=== PATIENT | male | born 1995 | race Hispanic/Latino ===

== ENCOUNTER 2023-07-07 21:11 | Observation (INO) | payer SELFPAY ==
[2023-07-07 21:46] LABS: #Monocytes 0.6 thou/uL (0.11-0.59); %Basophils 0.2 % (0.0-1.0); %Lymphocytes 2.8 % (21.0-51.0); %Monocytes 2.5 % (0.0-10.0); %Neutrophils 94.1 % (42.0-75.0); Hematocrit 54.8 % (42.0-52.0); Hemoglobin 18.5 g/dL (14.0-18.0); Mean Corpuscular HGB CONC 33.8 g/dL (32.0-36.0); Mean Corpuscular Hemoglobin 30.7 pg (27.0-31.0); Mean Corpuscular Volume 90.9 fl (78.0-98.0); Mean Platelet Volume 9.5 fL (7.4-10.4); Platelet Count 423 10x3/uL (130-400); RBC Distribution Width 12.8 % (11.5-14.5); Red Blood Cell (RBC) Count 6.03 mill/uL (4.70-6.10); White Blood Cell (WBC) Count 22.3 10x3/uL (4.8-10.8)
[2023-07-07 22:27] LABS: ALT (SGPT) 20 U/L (8-55); AST (SGOT) 20 U/L (5-34); Alkaline Phosphatase 94 U/L (40-110); Anion Gap 29 mmol/L (10-20); BUN (Urea Nitrogen) 28 mg/dL (8.9-20.6); Bilirubin, Total 0.5 mg/dL (0.2-1.2); Calc. Creatinine Clearance 0 mL/min (70-130); Calcium 12.2 mg/dL (7.8-10.44); Carbon Dioxide 18 mmol/L (22-29); Chloride 98 mmol/L (98-107); Estimated GFR 19; Glucose 161 mg/dL (70-105); Lipase 18 U/L (8-78); Potassium 5.3 mmol/L (3.5-5.1); Protein, Total 10.7 g/dL (6.0-8.3); Sodium 140 mmol/L (136-145)
[2023-07-07] MEDS ORDERED: Piperacillin/Tazobactam 4.5 GM VIAL ONE (23:03)
[2023-07-07 23:40] LABS: Albumin Greater than 6.2 g/dL (3.5-5.0)
[2023-07-08] MEDS ORDERED: Sodium Chloride 0.9% 1,000 ML IV SCH (00:30)
[2023-07-08] MEDS ORDERED: Ondansetron ODT 4 MG TAB PO PRN (01:08)
[2023-07-08] MEDS ORDERED: Acetaminophen 325 MG TAB PO PRN (01:08)
[2023-07-08] MEDS ORDERED: Ondansetron PF 4 MG/2 ML Vial IVP PRN (01:08)
[2023-07-08 01:12] LABS: Anion Gap 24 mmol/L (10-20); BUN (Urea Nitrogen) 29 mg/dL (8.9-20.6); Calc. Creatinine Clearance 0 mL/min (70-130); Calcium 9.4 mg/dL (7.8-10.44); Carbon Dioxide 16 mmol/L (22-29); Chloride 104 mmol/L (98-107); Estimated GFR 25; Glucose 125 mg/dL (70-105); Sodium 139 mmol/L (136-145)
[2023-07-08 01:14] LABS: Lactic Acid 7.2 mmol/L (0.5-2.2)
[2023-07-08] MEDS: Sodium Chloride 0.9% 1,000 ML IV SCH ×3 (01:15→12:28)
[2023-07-08] MEDS ORDERED: Sodium Chloride 0.9% 500 ML IV SCH ×2 (01:45→03:30)
[2023-07-08] MEDS ORDERED: Sodium Bicarb 50 MEQ/50 ML VIAL IVP SCH ×2 (02:30→02:45)
[2023-07-08 02:56] VITALS: BMI 22.7
[2023-07-08] MEDS ORDERED: Piperacillin/Tazobactam 3.375 GM in Sodium Chloride 0.9% 100 ML IVPB SCH (04:00)
[2023-07-08] MEDS ORDERED: Piperacillin/Tazobactam 4.5 GM in Sodium Chloride 0.9% 100 ML IVPB SCH (04:00)
[2023-07-08 05:41] LABS: #Monocytes 1.4 thou/uL (0.11-0.59); #Neutrophils 12.5 thou/uL (1.40-6.50); %Basophils 0.2 % (0.0-1.0); %Monocytes 9.3 % (0.0-10.0); Mean Corpuscular HGB CONC 34.4 g/dL (32.0-36.0); Mean Corpuscular Hemoglobin 31.2 pg (27.0-31.0); Mean Corpuscular Volume 90.8 fl (78.0-98.0); Mean Platelet Volume 9.4 fL (7.4-10.4); Red Blood Cell (RBC) Count 4.26 mill/uL (4.70-6.10); White Blood Cell (WBC) Count 15.5 10x3/uL (4.8-10.8)
[2023-07-08 05:52] LABS: Hematocrit 38.7 % (42.0-52.0); Hemoglobin 13.3 g/dL (14.0-18.0); Platelet Count 313 10x3/uL (130-400)
[2023-07-08 06:07] LABS: Lactic Acid 2.2 mmol/L (0.5-2.2)
[2023-07-08 06:23] LABS: ALT (SGPT) 12 U/L (8-55); AST (SGOT) 12 U/L (5-34); Acetaminophen Less than 10 mcg/mL (10.0-30.0); Alcohol Less than 10.0 mg/dL (Less than 10); Alkaline Phosphatase 58 U/L (40-110); Anion Gap 13 mmol/L (10-20); BUN (Urea Nitrogen) 24 mg/dL (8.9-20.6); Bilirubin, Total 0.4 mg/dL (0.2-1.2); Calc. Creatinine Clearance 63 mL/min (70-130); Calcium 8.5 mg/dL (7.8-10.44); Carbon Dioxide 28 mmol/L (22-29); Chloride 101 mmol/L (98-107); Estimated GFR 67; Globulin 2.5 g/dL (2.4-3.5); Glucose 116 mg/dL (70-105); Potassium 3.8 mmol/L (3.5-5.1); Protein, Total 6.5 g/dL (6.0-8.3); Salicylate Less than 8.0 mg/dL (15.0-30.0); Sodium 138 mmol/L (136-145)
[2023-07-08 06:52] LABS: Bacteria/HPF None Seen HPF (None Seen); Bilirubin Negative (Negative); Blood, Urine Negative (Negative); CAUTI Indications for Culture Fever or rigors; Clarity Clear (Clear); Glucose, Urine (Dipstick) Normal (Negative); Ketone, Urine 10 mg/dL (Negative); Leukocyte Negative Leu/uL (Negative); Nitrite Negative (Negative); Protein, Urine (Dipstick) 20 mg/dL (Neg-Trace); RBC/HPF 0-3 HPF (0-3); Specific Gravity, Urine 1.022 (1.002-1.036); Squamous Epithelial None Seen HPF (0-3); Urobilinogen Normal mg/dL (Less than 2); pH, Urine 5.5 (5.0-9.0)
[2023-07-08 06:54] LABS: Urine Culture Reflex No No
[2023-07-08 09:07] VITALS: BP 105/62; TEMP 98.5
[2023-07-08 09:25] LABS: Amphetamine Not Detected (NotDetected); Barbiturates Screen Not Detected (NotDetected); Benzodiazepine Screen Not Detected (NotDetected); Cocaine Metabolite Screen Not Detected (NotDetected); Methadone Not Detected (NotDetected); Methamphetamine Not Detected (NotDetected); Opiate Screen Not Detected (NotDetected); Oxycodone Screen Not Detected (NotDetected); Phencyclidine (PCP) Not Detected (NotDetected); THC/Cannabinoid Screen Not Detected (NotDetected); Tricyclic Screen Not Detected (NotDetected)
== END 2023-07-08 13:31 | disposition home or self-care (01) ==
LOC: ERS 21:11 → ERHOLD 07-08 00:15 → SJJU 07-08 02:22
PROVIDERS: ADMIT Internal Medicine; ATTEND Internal Medicine
DX: T67.01XA Heatstroke and sunstroke, initial encounter (principal); N17.9 Acute kidney failure, unspecified; E86.0 Dehydration; E87.5 Hyperkalemia; E83.52 Hypercalcemia; E87.21 Acute metabolic acidosis
CPT/HCPCS: 36415; 74176; 80048; 80053; 80306; 80307; 81001; 82550; 83036; 83605; 83690; 84145; 85025; 87040; 93005; 96361; 96365; 96366; 96375; G0378; J2543; J3490; J7050